=== PATIENT | male | born 1980 | race Caucasian/White ===

== ENCOUNTER 2021-12-11 17:12 | Emergency (ER) | payer MEDICAID, SELFPAY ==
--- NOTE | 2021-12-11 18:36 | CRLHL7_ITS ---
For Patients: As a result of the Cures Act, medical imaging exams and procedure reports are released immediately into your electronic medical record. You may view this report before your referring provider. If you have questions, please contact your health care provider. Indication: Trauma. Technique: Right foot 3 views. Comparison: None. Findings: Bones: Alignment is normal. No fractures or bone lesions. Joint spaces: Unremarkable. Soft tissues: Unremarkable. Impression: No sign of acute injury. Dictated by Gagandeep Beasley MD @ 12/11/2021 7:38:36 PM (Electronically Signed)
[2021-12-11] MEDS: IBUPROFEN 200 MG TABLET 600 MG PO (19:16)
--- NOTE | 2021-12-12 00:32 | ED_ITS ---
HPI - General Adult General Chief complaint: Extremity Pain/Injury, Lower Stated complaint: POSSIBLE BROKEN RT FOOT Time Seen by Provider: 12/11/21 18:43 Source: patient History of Present Illness HPI narrative: Patient is a 40-year-old male who was jumping in a bounce house with his son. He tried to do a flip in the process hit his lateral left ankle on his medial right foot. He had immediate significant swelling on the dorsum of his right foot. He complains of pain there, difficulty bearing weight although he did not really try. Swelling is significantly improved now, he has not tried weight- bearing again. He does have some swelling on the outer left ankle although that is not hurting nearly as much as the foot, which he says is severely painful. Denies other injuries or complaints. Feels like the side of his foot is a little numb and tingly. No weakness or loss of function. Related Data Allergies Allergy/AdvReac Type Severity Reaction Status Date / Time No Known Drug Allergies Allergy Verified 12/11/21 19:47 Review of Systems Status of ROS: Reports: 6 or more systems reviewed and unremarkable except as noted in History and below [facility] Social History Smoking Status: Unknown if ever smoked Exam Narrative: Exam Narrative: Vital signs reviewed In general, an alert male, sitting in wheelchair. Looks comfortable. Extremities: Left ankle, some swelling noted over the left malleolus, he has tenderness directly over the swelling, but does not have any tenderness over the posterior malleolus, no bruising, remainder the ankle is entirely nontender. Foot is nontender. On the right foot, he has bruising noted over the dorsum of the foot, tenderness here. Remainder of the foot is nontender. Pulses intact. Distal CMS normal. Ankle is nontender. Remainder of the right lower extremity is normal. Skin: Warm dry well perfused. Course Course Hospital Course: X-rays of the right foot by my review are negative for fracture. Final radiology report is likewise negative. We discussed doing x-rays of the left ankle, but given that the foot is much more painful than the ankle by his report, and the foot is not fractured, my suspicion that the ankle is fractured is rather low. He defers on x-rays of the ankle right now. Asked the nurse to try med hard sole shoe, plus or minus crutches depending on how he felt. He had requested something for pain, he mention Vicodin, he is here with his 2 sons, given the absence of any fracture on x-ray, discussed that ibuprofen is more appropriate, particularly given that he is driving. Recommend ibuprofen or Tylenol, ice, discussed that x-rays are not perfect, he is not improving over the next week should be seen again for re-evaluation. Discharge Plan Discharge Clinical Impression: Contusion of foot, Ankle contusion Patient Disposition: Home, Self-Care Condition: Improved Instructions: Foot Contusion (ED) Additional Instructions: Continue with ice as needed over the next couple of days. Ibuprofen and/or Tylenol as needed. X-rays do not show any evidence of fracture. Use postop shoe as needed for comfort, crutches if needed, weightbear as tolerated. Symptoms should improve over the next few days. If you are still not able to bear weight in a week, you should be seen for re-evaluation as x-rays do not always show injuries right away. Follow Up/Referrals: Rafat Wellington MD [Primary Care Provider] - Stand Alone Forms: [employer] Info Instructions
== END 2021-12-11 20:09 | disposition home or self-care (01) ==
PROVIDERS: Emergency Provider Emergency Medicine; PCP Family Medicine
DX: S90.31XA Contusion of right foot, initial encounter (principal); Y93.39 Activity, other involving climbing, rappelling and jumping off
CPT/HCPCS: 73630; 99283; A9270

== ENCOUNTER 2022-11-30 22:53 | Emergency (ER) | payer MEDICAID, SELFPAY ==
[2022-11-30 23:20] VITALS: BP 135/78; PULSE 87; RESP 18; TEMP 36.7; O2SAT 99; BMI 25.8
--- NOTE | 2022-12-01 00:14 | ED_ITS ---
HPI - General Adult General Chief complaint: Dental/Oral/Mouth Injury/Pain Stated complaint: abscess tooth left side Time Seen by Provider: 12/01/22 00:03 Source: patient Mode of arrival: ambulatory Limitations: no limitations History of Present Illness HPI narrative: The patient presents the emergency department with a 3 day history of dental tenderness and a 1 day history of some mild facial swelling to the left cheek area. Known history of multiple dental caries. He attempted to call the dentist yesterday to get an appointment and could not locate an appointment with calling a few offices. No trauma, no fevers. Pain radiates into the ear. Has not taken any medication for his pain as he is out of Tylenol. No breathing difficulty, no headache, no neurological change or vision loss. No difficulty s wallowing. Past medical history benign, notes depression and ADHD, well managed on Adderall and fluoxetine. ROS is notable for the HEENT symptoms as above, otherwise denies generalized, respiratory, skin, other HEENT concerns Related Data Home Medications Medication Instructions Recorded Confirmed bupropion HCl 150 mg 24 hr tablet, 150 mg PO QAM 11/30/22 extended release dextroamphetamine-amphetamine 20 1 tab PO BID 11/30/22 11/30/22 mg tablet fluoxetine 20 mg capsule 20 mg PO DAILY 11/30/22 11/30/22 Allergies Allergy/AdvReac Type Severity Reaction Status Date / Time sun Allergy Mild Rash Uncoded 11/30/22 23:26 [facility] Social History Smoking Status: Heavy tobacco smoker What tobacco products do you use: cigarettes Smoking packs per day: 0.5 Smoking cigarettes per day: 10.0 Years smoked: 10 Smoking pack-years: 5.00 Do you use any of these nicotine containing products: None Second hand tobacco smoke exposure: No How often do you have a drink containing alcohol: 2-3 times a week AUDIT-C Alcohol total score: 3 Non-prescribed substance use: marijuana (any form) service: No Exam Const: Vital Signs, click to edit/add: Vital Signs - 24 hr 11/30/22 23:20 Temperature 98.0 F Pulse Rate [Pulse Oximeter] 87 Respiratory Rate 18 Blood Pressure [Le ft Upper Arm] 135/78 Pulse Oximetry 99 Oxygen Delivery Me thod Room Air Documenting provider has reviewed patient's vital signs: yes Common normals: no apparent distress General appearance: comfortable HENMT: Common normals: normocephalic, head/scalp atraumatic and TM's normal bilaterally Head and scalp: normocephalic and atraumatic Face and sinus: normal facial exam Tympanic membrane: TM's normal bilaterally Mouth: oral and palatal mucosa normal Other: Multiple dental caries. No obvious lower gum fluctuance or drainage. There is some mild swelling of the gum area on the lower 1st molar area. 2nd molar is surgically absent. No overlying facial swelling or redness. Is Eye: Other: Normal visual gaze and tracking Neck & C-Spine: Common normals: full ROM and no lymphadenopathy Resp: Common normals: normal respiratory effort, no use of accessory muscles and clear to auscultation bilaterally Effort & inspection: able to speak in complete sentences Auscultation: clear to auscultation bilaterally Cardio: Common normals: regular rate, regular rhythm, S1 normal heart sound, S2 normal heart sound and no murmurs Rate: regular rate Rhythm: regular rhythm Heart sounds: S1 normal and S2 normal Psych: Activity/motor behavior: appropriate eye contact Mood and affect: euthymic mood Skin: Common normals: no rashes or lesions noted General skin exam: no rashes or lesions noted Course Course Hospital Course: No signs of facial cellulitis, tachycardia, hypotension, sepsis, neurological involvement or other significant complication. Findings reviewed with patient. Discussed how he will need to find definitive care through a dentist. Temporary prescription for amoxicillin given. Use discussed, alarm symptoms reviewed. Tylenol given x1 p.o. per his request I recommended [id number] Tylenol and ibuprofen as needed for pain control Vital Signs Vital signs: Initial Vital Signs Temperature 98.0 F 11/30/22 23:20 Temperature Source Temporal Artery Scan 11/30/22 23:20 Pulse Rate 87 11/30/22 23:20 Respiratory Rate 18 11/30/22 23:20 Blood Pressure 135/78 11/30/22 23:20 Blood Pressure Mean 97 11/30/22 23:20 Blood Pressure Position Sitting 11/30/22 23:20 Pulse Oximetry 99 11/30/22 23:20 Oxygen Delivery Method Room Air 11/30/22 23:20 Vital Signs Temperature 98.0 F 11/30/22 23:20 Pulse Rate 87 11/30/22 23:20 Respiratory Rate 18 11/30/22 23:20 Blood Pressure 135/78 11/30/22 23:20 Pulse Oximetry 99 11/30/22 23:20 Oxygen Delivery Method Room Air 11/30/22 23:20 Temperature 98.0 F 11/30/22 23:20 Pulse Rate 87 11/30/22 23:20 Respiratory Rate 18 11/30/22 23:20 Blood Pressure 135/78 11/30/22 23:20 Pulse Oximetry 99 11/30/22 23:20 Oxygen Delivery Method Room Air 11/30/22 23:20 Discharge Plan Discharge Clinical Impression: Dental caries Patient Disposition: Home, Self-Care Condition: Stable Instructions: Dental Abscess (ED) Additional Instructions: You seem to have a mild infection but no signs of severe infection. As we discussed, we do not manage dental infections in the emergency department. We can provide a temporary intervention which will slow the progression of the infection with oral antibiotics but this will definitively need treatment from a dentist. Please keep calling to try to get an appointment as soon as possible. I have prescribed amoxicillin 2 pills 2 times daily for the next week. For pain, I recommend [id number] Tylenol 1000 mg every 6 hours and or ibuprofen 600 mg every 6 hours. I am not concerned about the ear pain nor the very mild facial swelling. I would come back to the emergency department if you have neurological changes, severe headaches, persistent fevers over 100.4 or unable to hold down any liquids for over 24 hours. Youare fully cleared for work and typical duty. Activity Level: No Restrictions Discharge Diet: Regular Prescriptions: No Action dextroamphetamine-amphetamine 20 mg tablet 1 tab PO BID fluoxetine 20 mg capsule 20 mg PO DAILY bupropion HCl 150 mg tablet extended release 24 hr 150 mg PO QAM Follow Up/Referrals: Rafat Wellington MD [Primary Care Provider] - Stand Alone Forms: [employer] Info Instructions
[2022-12-01] MEDS: ACETAMINOPHEN 500 MG TABLET 1000 MG PO (00:19)
== END 2022-12-01 00:24 | disposition home or self-care (01) ==
LOC: ED 12-01 00:19
PROVIDERS: Emergency Provider Family Medicine; PCP Family Medicine
DX: K02.9 Dental caries, unspecified (principal)
CPT/HCPCS: 99283; A9270

== ENCOUNTER 2022-12-12 16:14 | Emergency (ER) | payer MEDICAID, SELFPAY ==
[2022-12-12 16:23] VITALS: BP 102/66; PULSE 80; RESP 18; TEMP 36.4; O2SAT 97; BMI 25.8
--- NOTE | 2022-12-12 16:40 | ED.GENADULT ---
HPI - General Adult General Date Seen: 12/12/22 Chief complaint: Unspecified Complaint, Adult Stated complaint: Hemorrhoid burst Time Seen by Provider: 12/12/22 16:26 Source: patient Mode of arrival: ambulatory Limitations: no limitations History of Present Illness HPI narrative: Patient is a 41-year-old male with a history of hemorrhoids, 3 days ago he says he developed a hemorrhoid which felt firm and was somewhat painful. 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 Pain is somewhat improved since then although it still sore. He does not take any blood thinners. Denies problems with constipation. Related Data Home Medications Medication Instructions Recorded Confirmed bupropion HCl 150 mg 24 hr tablet, 150 mg PO QAM 11/30/22 extended release dextroamphetamine-amphetamine 20 1 tab PO BID 11/30/22 11/30/22 mg tablet fluoxetine 20 mg capsule 20 mg PO DAILY 11/30/22 11/30/22 Allergies Allergy/AdvReac Type Severity Reaction Status Date / Time sun Allergy Mild Rash Uncoded 11/30/22 23:26 Review of Systems Status of ROS: Reports: 6 or more systems reviewed and unremarkable except as noted in History and below PFSH PFS Social History Smoking Status: Heavy tobacco smoker What tobacco products do you use: cigarettes Smoking packs per day: 0.5 Smoking cigarettes per day: 10.0 Years smoked: 10 Smoking pack-years: 5.00 Do you use any of these nicotine containing products: None Second hand tobacco smoke exposure: No How often do you have a drink containing alcohol: 2-3 times a week AUDIT-C Alcohol total score: 3 Non-prescribed substance use: marijuana (any form) service: No Exam Narrative: Exam Narrative: Vital signs reviewed In general, an alert, well-appearing male. Rectal: He has a roughly 1.5 cm thrombosed hemorrhoid. There is a small punctate area which bleeds when dabbed with paper. There is no other significant bleeding. No other hemorrhoids at this time. Const: Vital Signs, click to edit/add: Vital Signs - 24 hr 12/12/22 16:23 Temperature 97.6 F Pulse Rate [Right Pulse Oximeter] 80 Respiratory Rate 18 Blood Pressure [Ri ght Upper Arm] 102/66 Pulse Oximetry 97 Oxygen Delivery Me thod Room Air Documenting provider has reviewed patient's vital signs: yes Course Course Hospital Course: Reviewed general care for hemorrhoids. I am giving him some surgifoam for the area to get the bleeding settled down. Given that this is been present for 3 days I think I and D is unlikely to be beneficial for him. Return for significant bleeding, p.r.n. follow up with primary care for ongoing problems. Vital Signs Vital signs: Initial Vital Signs Temperature 97.6 F 12/12/22 16:23 Temperature Source Temporal Artery Scan 12/12/22 16:23 Pulse Rate 80 12/12/22 16:23 Respiratory Rate 18 12/12/22 16:23 Blood Pressure 102/66 12/12/22 16:23 Blood Pressure Mean 78 12/12/22 16:23 Blood Pressure Position Sitting 12/12/22 16:23 Pulse Oximetry 97 12/12/22 16:23 Oxygen Delivery Method Room Air 12/12/22 16:23 Vital Signs Temperature 97.6 F 12/12/22 16:23 Pulse Rate 80 12/12/22 16:23 Respiratory Rate 18 12/12/22 16:23 Blood Pressure 102/66 12/12/22 16:23 Pulse Oximetry 97 12/12/22 16:23 Oxygen Delivery Method Room Air 12/12/22 16:23 Temperature 97.6 F 12/12/22 16:23 Pulse Rate 80 12/12/22 16:23 Respiratory Rate 18 12/12/22 16:23 Blood Pressure 102/66 12/12/22 16:23 Pulse Oximetry 97 12/12/22 16:23 Oxygen Delivery Method Room Air 12/12/22 16:23 Discharge Plan Discharge Clinical Impression: External hemorrhoid, thrombosed Patient Disposition: Home, Self-Care Condition: Stable Instructions: Hemorrhoids (ED) Additional Instructions: Place a small piece of Gelfoam over the area that is bleeding. Be gentle with wiping so as to not disrupt this area. It will probably take a couple of weeks for the hemorrhoid to completely resolve. You can take ibuprofen or Tylenol if needed for pain. Return for significant bleeding. Prescriptions: No Action dextroamphetamine-amphetamine 20 mg tablet 1 tab PO BID fluoxetine 20 mg capsule 20 mg PO DAILY bupropion HCl 150 mg tablet extended release 24 hr 150 mg PO QAM Follow Up/Referrals: Rafat Wellington MD [Primary Care Provider] - Stand Alone Forms: [employer] Info Instructions
== END 2022-12-12 16:50 | disposition home or self-care (01) ==
LOC: ED 16:41
PROVIDERS: Emergency Provider Emergency Medicine; PCP Family Medicine
DX: K64.5 Perianal venous thrombosis (principal)
CPT/HCPCS: 99282; 99283

== ENCOUNTER 2023-08-22 13:54 | Emergency (ER) | payer MEDICAID, SELFPAY ==
[2023-08-22 13:59] VITALS: BP 125/71; PULSE 74; RESP 20; TEMP 36.7; O2SAT 97; BMI 25.8
--- NOTE | 2023-08-22 14:26 | XR_ITS ---
Patient: BLAINE MICHAEL Facility:?[facility] Patient ID:?[id number] Site Patient ID:?[id number]. Site :?[id number] Study:?XRay-Extremity Left 4TH DIGIT FINGER-08/22/2023 2:43:53 PM Ordering Physician:SHANTEL Final Report: INDICATION: Crush injury COMPARISON: None. TECHNIQUE: Three views left 4th finger. FINDINGS: Small bony irregularity along the dorsal base of the distal phalanx may be a small nondisplaced fracture. No other fracture. Normal joint alignment. Mild osteoarthritis. No focal bone lesions. Normal bone mineralization. Soft tissue swelling and subcutaneous emphysema. No embedded foreign body. Partially seen 5th metatarsal fracture fixation hardware. IMPRESSION: Possible nondisplaced left 4th finger distal phalanx fracture. Subcutaneous emphysema and swelling without a foreign body. Dictated by Marita Kim MD @ 08/22/2023 2:46:41 PM Signed by:?Marita Kim MD @08/22/2023 2:46:41 PM (Electronic Signature)
--- NOTE | 2023-08-22 15:11 | ED_ITS ---
HPI - General Adult General Chief complaint: Extremity Pain/Injury, Upper Stated complaint: lac on ring finger r hand Time Seen by Provider: 08/22/23 14:05 Source: patient Mode of arrival: ambulatory Limitations: no limitations History of Present Illness HPI narrative: 42-year-old male presenting today with a laceration to the ring finger of the left hand. This occurred when a lift from a truck bed fell on his hand. He denies any other injury. Tetanus shot is up-to-date. Related Data Home Medications Medication Instructions Recorded Confirmed bupropion HCl 150 mg 24 hr tablet, 150 mg PO QAM 11/30/22 extended release dextroamphetamine-amphetamine 20 1 tab PO BID 11/30/22 11/30/22 mg tablet fluoxetine 20 mg capsule 20 mg PO DAILY 11/30/22 11/30/22 Previous Rx's Medication Instructions Recorded cephalexin 500 mg capsule 500 mg PO TID 7 days #21 caps 08/22/23 Allergies Allergy/AdvReac Type Severity Reaction Status Date / Time sun Allergy Mild Rash Uncoded 11/30/22 23:26 Review of Systems Status of ROS: Reports: 6 or more systems reviewed and unremarkable except as noted in History and below [facility] Social History Smoking Status: Current some day smoker What tobacco products do you use: cigarettes Smoking packs per day: 0.5 Smoking cigarettes per day: 10.0 Years smoked: 10 Smoking pack-years: 5.00 Do you use any of these nicotine containing products: None Second hand tobacco smoke exposure: No How often do you have a drink containing alcohol: 2-4 times a month How many standard drinks containing alcohol do you have on a typical day: 3 or 4 How often do you have six or more drinks on one occasion: Less than monthly AUDIT-C Alcohol total score: 4 Non-prescribed substance use: marijuana (any form) service: No Exam Narrative: Exam Narrative: Well-nourished well-developed patient in no acute distress. Alert and oriented. Answers questions appropriately. Mood and affect are appropriate. Thoughts are goal oriented and rational. No tangential or magical thinking noted. Patient speaks in full sentences without needing to catch his breath. Small strongly of tobacco. HEENT: Normocephalic atraumatic. Extraocular muscles are intact. Conjunctivae are moist without any icterus noted. Extremities: Left hand has a laceration on the palmar surface of the ring finger. The laceration is a C-shaped over the pad of the finger with the pad of the finger resulting in a flap. The laceration that extends down the shaft of the finger 2nd just distal to the PIP. Patient does have full range of motion with flexion and extension of that finger. There is no bone visualized. Const: Vital Signs, click to edit/add: Vital Signs - 24 hr 08/22/23 13:59 Temperature 98.1 F Pulse Rate [Pulse Oximeter] 74 Respiratory Rate 20 Blood Pressure [Le ft Upper Arm] 125/71 Pulse Oximetry 97 Oxygen Delivery Me thod Room Air Course Course ED Course: X-ray of the finger was done, showing a possible nondisplaced fracture of the dorsal surface of the distal phalanx. Digital block was done with lidocaine. Wound was cleaned and explored. Laceration was sutured with 4-0 Ethilon. The finger was then clean, dressed and splinted. Vital Signs Vital signs: Initial Vital Signs Temperature 98.1 F 08/22/23 13:59 Temperature Source Temporal Artery Scan 08/22/23 13:59 Pulse Rate 74 08/22/23 13:59 Pulse Rhythm Regular 08/22/23 13:59 Respiratory Rate 20 08/22/23 13:59 Blood Pressure 125/71 08/22/23 13:59 Blood Pressure Mean 89 08/22/23 13:59 Blood Pressure Position Sitting 08/22/23 13:59 Pulse Oximetry 97 08/22/23 13:59 Oxygen Delivery Method Room Air 08/22/23 13:59 Vital Signs Temperature 98.1 F 08/22/23 13:59 Pulse Rate 74 08/22/23 13:59 Respiratory Rate 20 08/22/23 13:59 Blood Pressure 125/71 08/22/23 13:59 Pulse Oximetry 97 08/22/23 13:59 Oxygen Delivery Method Room Air 08/22/23 13:59 Temperature 98.1 F 08/22/23 13:59 Pulse Rate 74 08/22/23 13:59 Respiratory Rate 20 08/22/23 13:59 Blood Pressure 125/71 08/22/23 13:59 Pulse Oximetry 97 08/22/23 13:59 Oxygen Delivery Method Room Air 08/22/23 13:59 Medical Decision Making MDM Narrative Medical decision making narrative: 42-year-old male status post a crush injury to the left ring finger, possible fracture she the distal phalanx, a large deep laceration to a large surface area of the finger. Sutured per above. We discussed wound hygiene, signs symptoms of infection reasons for follow-up. We discussed suture removal. Will put the patient on antibiotic given the depth of the laceration. Imaging Data X-ray finger: Attestation: I have reviewed the pertinent imaging results. Radiologist's impression: INDICATION: Crush injury COMPARISON: None. TECHNIQUE: Three views left 4th finger. FINDINGS: Small bony irregularity along the dorsal base of the distal phalanx may be a small nondisplaced fracture. No other fracture. Normal joint alignment. Mild osteoarthritis. No focal bone lesions. Normal bone mineralization. Soft tissue swelling and subcutaneous emphysema. No embedded foreign body. Partially seen 5th metatarsal fracture fixation hardware. IMPRESSION: Possible nondisplaced left 4th finger distal phalanx fracture. Subcutaneous emphysema and swelling without a foreign body. Discharge Plan Discharge Clinical Impression: Fracture of distal phalanx of finger, Crush injury to finger, Laceration Patient Disposition: Home, Self-Care Condition: Improved Additional Instructions: Keep finger clean and dry. Okay to shower like you normally would but do not soak the finger for prolonged periods of time. You will be placed on an antibiotic because of the size of your laceration today, please take all antibiotics as prescribed. Your sutures should be removed in approximately 7-10 days. Make an appoint with your primary care provider today for that appointment. The dressing should be changed once a day unless it becomes dirty, then change it more often. If you are going to work make sure that the finger is covered at all times. The radiologist did see a tiny crack of the bone at the tip of the finger. This should heal without complication. You should wear your splint at all times to protect the bone and to help with pain. Antibiotics sent to pharmacy, pain medication sent to [facility]. You cannot operate any heavy machinery or drive if you take the prescribe pain medications. Prescriptions: New cephalexin 500 mg capsule 500 mg PO TID 7 Days Qty: 21 0RF No Action dextroamphetamine-amphetamine 20 mg tablet 1 tab PO BID fluoxetine 20 mg capsule 20 mg PO DAILY bupropion HCl 150 mg tablet extended release 24 hr 150 mg PO QAM Follow Up/Referrals: Rafat Wellington MD [Primary Care Provider] - Stand Alone Forms: [employer] Info Instructions
[2023-08-22] MEDS: ACETAMINOPHEN 500 MG TABLET 1000 MG PO (15:30)
[2023-08-22 15:37] VITALS: BP 125/71; PULSE 74; RESP 20; TEMP 36.7
== END 2023-08-22 15:38 | disposition home or self-care (01) ==
PROVIDERS: Emergency Provider Family Medicine; PCP Family Medicine
DX: S62.635A Displaced fracture of distal phalanx of left ring finger, initial encounter for closed fracture (principal); S61.215A Laceration without foreign body of left ring finger without damage to nail, initial encounter; W20.8XXA Other cause of strike by thrown, projected or falling object, initial encounter
CPT/HCPCS: 12001; 73140; 99283; 99284; A9270

== ENCOUNTER 2023-08-30 13:01 | Emergency (ER) | payer OTHER, MEDICAID, SELFPAY ==
[2023-08-30 13:04] VITALS: BP 121/67; PULSE 62; RESP 16; TEMP 37.1; O2SAT 99; BMI 27.3
--- NOTE | 2023-08-30 13:10 | ED.GENADULT ---
HPI - General Adult General Date Seen: 08/30/23 Stated complaint: L finger infection Time Seen by Provider: 08/30/23 13:10 History of Present Illness HPI narrative: This is a pleasant generally healthy 42-year-old male who returns to the ER today for re-evaluation of his 4th digit on his left hand. He originally suffered a crush injury and a loading dock at work on August 19. Laceration was repaired in the ER on the day of injury. X-ray showed a possible distal phalanx fracture. He was discharged home in a splint. He followed up at the [facility] yesterday, 7 days after the wound repair and had the sutures removed. He says they placed a dressing with lot of antibiotic ointment and sent home. Today weight took the dressing off the wound had dehisced. He also notes that he now has whiteness of the skin on the flap that had been repaired and a little bit of whiteness along the proximal edge of the wound on the proximal portion of the finger. Noted some yellow purulent drainage from the wound today. No redness or swelling of the finger. He is having some pain. He has normal flexion and extension of the D IP, PIP, MCP. No history of immunosuppression or diabetes. Related Data Home Medications Medication Instructions Recorded Confirmed bupropion HCl 150 mg 24 hr tablet, 150 mg PO QAM 11/30/22 extended release dextroamphetamine-amphetamine 20 1 tab PO BID 11/30/22 11/30/22 mg tablet fluoxetine 20 mg capsule 20 mg PO DAILY 11/30/22 11/30/22 Previous Rx's Medication Instructions Recorded cephalexin 500 mg capsule 500 mg PO TID 7 days #21 caps 08/22/23 amoxicillin 875 mg tablet 875 mg PO BID #14 tabs 08/30/23 amoxicillin 875 mg tablet 875 mg PO BID 7 days #14 tabs 08/30/23 hydrocodone 5 mg-acetaminophen 325 1 tab PO Q4-6H PRN pain #10 tabs 08/30/23 mg tablet hydrocodone 5 mg-acetaminophen 325 1 tab PO Q4-6H PRN pain #14 tabs 08/30/23 mg tablet sulfamethoxazole 800 1 tab PO BID #14 tabs 08/30/23 mg-trimethoprim 160 mg tablet (Bactrim DS) sulfamethoxazole 800 1 tab PO BID 7 days #14 tabs 08/30/23 mg-trimethoprim 160 mg tablet (Bactrim DS) Allergies Allergy/AdvReac Type Severity Reaction Status Date / Time sun Allergy Mild Rash Uncoded 11/30/22 23:26 [facility] Social History Smoking Status: Current some day smoker What tobacco products do you use: cigarettes Smoking packs per day: 0.5 Smoking cigarettes per day: 10.0 Years smoked: 10 Smoking pack-years: 5.00 Do you use any of these nicotine containing products: None Second hand tobacco smoke exposure: No How often do you have a drink containing alcohol: 2-4 times a month How many standard drinks containing alcohol do you have on a typical day: 3 or 4 How often do you have six or more drinks on one occasion: Less than monthly AUDIT-C Alcohol total score: 4 Non-prescribed substance use: marijuana (any form) service: No Exam Narrative: Exam Narrative: Constitutional: Appears well-developed and well-nourished. Alert. Conversant. Non toxic. HENT: Head: Atraumatic. Nose: Nose normal. Mouth/Throat: Oral mucosa is clear and moist. no trismus. Pharynx normal. Tonsils symmetric. No tonsillar enlargement, erythema, or exudate. Eyes: Conjunctivae normal. EOM normal. Pupils equal, round, and reactive to light. No scleral icterus. Neck: Normal range of motion. Neck supple. No tracheal deviation present. Cardiovascular: Normal rate, regular rhythm. No gallop. No friction rub. No murmur heard. Symmetric radial artery pulses Pulmonary/Chest: Effort normal. No stridor. No respiratory distress. No wheezes. No rales. No rhonchi . No tenderness. Abdominal: Soft. Bowel sounds normal. No distension. No mass. No tenderness. No rebound. No guarding. Musculoskeletal: RUE: Normal range of motion. No tenderness. No deformity LUE: Normal except for his 4th digit. Patient has a wound on the finger pad of his 4th digit. It appears to be a curvilinear C shaped wound affecting the pad that would have created a flap of the finger pad distally. The wound is dehisced and there is exposed underlying soft tissue with a diameter between the skin edges between 1 mm and 2 mm. The skin edge of the distal flap is macerated and white. There is also some maceration and whiteness of the skin the proximal wound. There is really not much redness of the skin around the wound. No active purulent drainage but reports having purulent drainage on the dressing he talked off this morning. Normal flexion and extension of the MCP, PIP, DI P. RLE: Normal range of motion. No edema. No tenderness. No deformity LLE: Normal range of motion. No edema. No tenderness. No deformity Lymph: No cervical adenopathy. Neurological: Alert and oriented to person, place, and time. Normal strength. CN II-VII intact. No sensory deficit. GCS eye subscore is 4. GCS verbal subscore is 5. GCS motor subscore is 6. Normal coordination Skin: Skin is warm and dry. No rash noted. No pallor. Normal capillary refill. Psychiatric: Normal mood. Normal affect. Const: Vital Signs, click to edit/add: Vital Signs - 24 hr 08/30/23 13:04 Temperature 98.8 F Pulse Rate [Pulse Oximeter] 62 Respiratory Rate 16 Blood Pressure [Ri ght Upper Arm] 121/67 Pulse Oximetry 99 Oxygen Delivery Me thod Room Air Course Vital Signs Vital signs: Initial Vital Signs Temperature 98.8 F 08/30/23 13:04 Temperature Source Temporal Artery Scan 08/30/23 13:04 Pulse Rate 62 08/30/23 13:04 Respiratory Rate 16 08/30/23 13:04 Blood Pressure 121/67 08/30/23 13:04 Blood Pressure Mean 85 08/30/23 13:04 Blood Pressure Position Sitting 08/30/23 13:04 Pulse Oximetry 99 08/30/23 13:04 Oxygen Delivery Method Room Air 08/30/23 13:04 Vital Signs Temperature 98.8 F 08/30/23 13:04 Pulse Rate 62 08/30/23 13:04 Respiratory Rate 16 08/30/23 13:04 Blood Pressure 121/67 08/30/23 13:04 Pulse Oximetry 99 08/30/23 13:04 Oxygen Delivery Method Room Air 08/30/23 13:04 Temperature 98.8 F 08/30/23 13:04 Pulse Rate 62 08/30/23 13:04 Respiratory Rate 16 08/30/23 13:04 Blood Pressure 121/67 08/30/23 13:04 Pulse Oximetry 99 08/30/23 13:04 Oxygen Delivery Method Room Air 08/30/23 13:04 Medical Decision Making MDM Narrative Medical decision making narrative: Pleasant generally healthy 42-year-old male returning to the ER today with concern for a wound infection. He had a crushing injury at work about a week feeling had the wound repaired. It had been healing well and sutures were looking good. He had the sutures removed yesterday and unfortunately the wound dehisced overnight. In retrospect, he suspects that the sutures were probably taken out too soon, and I agree. With purulent drainage from the wound today concern is for possible evolving infection. He has been on prophylactic Keflex. This has been causing GI upset but not diarrhea. No suspicions for C diff at this time. He also has a history of MRSA. Will broaden his antibiotic coverage to include Bactrim and switch from Keflex to amoxicillin to cover possible MRSA is other skin jessica. He will need close outpatient follow-up with the ortho clinic to recheck the wound. He will call Friday to arrange his follow-up appointment. Discussed wound care, dressing changes, precautions for return to the ER. Questions answered. Discharge Plan Discharge Clinical Impression: Finger infection, Dehiscence of wound Patient Disposition: Home, Self-Care Condition: Stable Instructions: MRSA (Methicillin-Resistant Staphylococcus Aureus) (ED), Wound Infection (DC) Additional Instructions: Please call the [facility] Orthopedic Department on Friday morning at 8:00 a.m. to arrange an ER follow-up appointment to recheck the wound on your finger. Call [phone]. Unfortunately, the skin of your wound has broken open after the stitches were removed, and there is signs of an infection around the wound. Please start the new antibiotics-amoxicillin and Bactrim- today. To manage the pain, you can use [id number] medications such as Tylenol or ibuprofen. Use prescription pain killer-hydrocodone, if needed. Use caution with hydrocodone because it can cause drowsiness, dizziness, and can be addictive. Monitor the wound carefully. Take the dressing off once per day. If the wound is soiled, clean the wound gently with warm water. After clean the wound reapply a small amount of antibiotic ointment and another dressing. If you notice increasing swelling, redness, worsening pus draining from the wound, further discoloration of your finger (turning white or blue), or if you develop fever, chills, or red streaks moving up your hand, return to the ER immediately. Prescriptions: New amoxicillin 875 mg tablet 875 mg PO BID Qty: 14 0RF sulfamethoxazole-trimethoprim [Bactrim DS] 800-160 mg tablet 1 tab PO BID Qty: 14 0RF hydrocodone-acetaminophen 5-325 mg tablet 1 tab PO Q4-6H PRN (Reason: pain) Qty: 10 0RF sulfamethoxazole-trimethoprim [Bactrim DS] 800-160 mg tablet 1 tab PO BID 7 Days Qty: 14 0RF amoxicillin 875 mg tablet 875 mg PO BID 7 Days Qty: 14 0RF hydrocodone-acetaminophen 5-325 mg tablet 1 tab PO Q4-6H PRN (Reason: pain) Qty: 14 0RF No Action dextroamphetamine-amphetamine 20 mg tablet 1 tab PO BID fluoxetine 20 mg capsule 20 mg PO DAILY bupropion HCl 150 mg tablet extended release 24 hr 150 mg PO QAM cephalexin 500 mg capsule 500 mg PO TID 7 Days Qty: 21 0RF Follow Up/Referrals: Rafat Wellington MD [Primary Care Provider] - Stand Alone Forms: [facility] Info Instructions
== END 2023-08-30 14:03 | disposition home or self-care (01) ==
LOC: ED 13:54
PROVIDERS: Emergency Provider Emergency Medicine; PCP Family Medicine
DX: T81.31XA Disruption of external operation (surgical) wound, not elsewhere classified, initial encounter (principal); L08.9 Local infection of the skin and subcutaneous tissue, unspecified
CPT/HCPCS: 99283

== ENCOUNTER 2023-12-24 21:47 | Emergency (ER) | payer MEDICAID, SELFPAY ==
[2023-12-24 21:56] VITALS: BP 142/89; PULSE 85; RESP 18; TEMP 36.8; O2SAT 98; BMI 27.3
--- NOTE | 2023-12-24 22:07 | CRLHL7_ITS ---
For Patients: As a result of the Cures Act, medical imaging exams and procedure reports are released immediately into your electronic medical record. You may view this report before your referring provider. If you have questions, please contact your health care provider. Indication: Pain and injury after fall Technique: Two views of the right forearm Comparison: None Findings/Impression: No acute radiographic abnormality appreciated. Dictated by Tushar Peoples MD @ 12/24/2023 10:49:21 PM (Electronically Signed)
--- NOTE | 2023-12-24 22:07 | CRLHL7_ITS ---
For Patients: As a result of the Cures Act, medical imaging exams and procedure reports are released immediately into your electronic medical record. You may view this report before your referring provider. If you have questions, please contact your health care provider. Indication: Pain and injury after fall Technique: Three views of the right elbow Comparison: None Findings/Impression: No acute radiographic abnormality appreciated. Dictated by Tushar Peoples MD @ 12/24/2023 10:48:43 PM (Electronically Signed)
--- NOTE | 2023-12-24 22:07 | CRLHL7_ITS ---
For Patients: As a result of the Cures Act, medical imaging exams and procedure reports are released immediately into your electronic medical record. You may view this report before your referring provider. If you have questions, please contact your health care provider. Indication: Pain and injury after fall Technique: Three views of the right wrist Comparison: Right hand radiographs performed 08/04/2016 Findings/Impression: Prior 5th metacarpal repair hardware with no acute radiographic abnormality appreciated. Dictated by Tushar Peoples MD @ 12/24/2023 10:50:12 PM (Electronically Signed)
--- NOTE | 2023-12-24 22:53 | ED.GENADULT ---
HPI - General Adult General Chief complaint: Extremity Pain/Injury, Upper Stated complaint: R arm injury Time Seen by Provider: 12/24/23 22:02 Source: patient Mode of arrival: ambulatory Limitations: no limitations History of Present Illness HPI narrative: 43-year-old male presenting today with arm pain. Patient states that he was skateboarding and fell on his right arm, arm was bent at the elbow and he landed on the anterior surface of the forearm. He is complaining of pain of the entire arm from wrist all the way to the elbow. Denies any other injury. Denies hitting his head or losing consciousness. Related Data Home Medications ?Medication ?Instructions ?Recorded ?Confirmed bupropion HCl 150 mg 24 hr tablet, 150 mg PO QAM 11/30/22 10/22/23 extended release dextroamphetamine-amphetamine 20 1 tab PO BID 11/30/22 10/22/23 mg tablet fluoxetine 20 mg capsule 20 mg PO DAILY 11/30/22 10/22/23 aripiprazole 2 mg tablet 2 mg PO DAILY 10/22/23 10/22/23 trazodone 50 mg tablet mg PO 10/22/23 10/22/23 Allergies Allergy/AdvReac Type Severity Reaction Status Date / Time grass pollen Allergy Verified 10/28/23 15:29 sun Allergy Mild Rash Uncoded 10/28/23 15:29 Review of Systems Status of ROS: Reports: 6 or more systems reviewed and unremarkable except as noted in History and below [facility] Medical History Sore mouth ?K13.79 - Other lesions of oral mucosa (ICD-10) Prurigo nodularis ?L28.1 - Prurigo nodularis (ICD-10) Left-sided chest pain ?R07.9 - Chest pain, unspecified (ICD-10) Left shoulder pain ?M25.512 - Pain in left shoulder (ICD-10) Left cervical radiculopathy ?M54.12 - Radiculopathy, cervical region (ICD-10) Intussusception of small intestine ?K56.1 - Intussusception (ICD-10) History of methicillin resistant Staphylococcus aureus infection (02/03/13) ?Z86.14 - Personal history of Methicillin resistant Staphylococcus aureus infection (ICD-10) Cellulitis of face (02/05/13) ?L03.211 - Cellulitis of face (ICD-10) Bronchitis ?J40 - Bronchitis, not specified as acute or chronic (ICD-10) Boxer's fracture ?S62.339A - Displaced fracture of neck of unspecified metacarpal bone, initial encounter for closed fracture (ICD-10) Attention deficit disorder of adult with hyperactivity ?F90.9 - Attention-deficit hyperactivity disorder, unspecified type (ICD-10) Surgical History History of hand surgery ?Z98.890 - Other specified postprocedural states (ICD-10) Family History Mother Colon cancer, Onset Age: 60 Heart disease, Onset Age: 57 Maternal Grandmother Stroke, Onset Age: 60 Heart disease Sister Epilepsy Other Lung cancer Social History Smoking Status: Current some day smoker What tobacco products do you use: cigarettes Smoking packs per day: 0.5 Smoking cigarettes per day: 10.0 Years smoked: 10 Smoking pack-years: 5.00 Do you use any of these nicotine containing products: None Second hand tobacco smoke exposure: No How often do you have a drink containing alcohol: 2-4 times a month How many standard drinks containing alcohol do you have on a typical day: 3 or 4 How often do you have six or more drinks on one occasion: Less than monthly AUDIT-C Alcohol total score: 4 Non-prescribed substance use: marijuana (any form) service: No Exam Narrative: Exam Narrative: Well-nourished well-developed patient in no acute distress. Alert and oriented. Answers questions appropriately. Mood and affect are appropriate. Thoughts are goal oriented and rational. No tangential or magical thinking noted. Patient speaks in full sentences without needing to catch his breath. HEENT: Normocephalic atraumatic. Extraocular muscles are intact. Conjunctivae are moist without any icterus noted. Moist mucous membranes. Extremities: Patient has very superficial abrasion of the anterior surface of the forearm just distal to the elbow. He has no tenderness to palpation at the olecranon, medial or lateral epicondyles. He has some discomfort with extension flexion at the elbow. When he moves his wrist he feels pain shooting up into the forearm. He has plane with flexion at and extension of the wrist. Normal radial pulse. No pain at the fingers. There is mild swelling noted of the forearm. Const: Vital Signs, click to edit/add: Vital Signs - 24 hr 12/24/23 21:56 Temperature 98.2 F Pulse Rate [Pulse Oximeter] 85 Respiratory Rate 18 Blood Pressure [Le ft Upper Arm] 142/89 H Pulse Oximetry 98 Oxygen Delivery Me thod Room Air Course Course ED Course: X-rays of the wrist, forearm and elbow were unremarkable. Vital Signs Vital signs: Initial Vital Signs Temperature 98.2 F 12/24/23 21:56 Temperature Source Temporal Artery Scan 12/24/23 21:56 Pulse Rate 85 12/24/23 21:56 Respiratory Rate 18 12/24/23 21:56 Blood Pressure 142/89 H 12/24/23 21:56 Blood Pressure Mean 106 H 12/24/23 21:56 Blood Pressure Position Sitting 12/24/23 21:56 Pulse Oximetry 98 12/24/23 21:56 Oxygen Delivery Method Room Air 12/24/23 21:56 Vital Signs Temperature 98.2 F 12/24/23 21:56 Pulse Rate 85 12/24/23 21:56 Respiratory Rate 18 12/24/23 21:56 Blood Pressure 142/89 H 12/24/23 21:56 Pulse Oximetry 98 12/24/23 21:56 Oxygen Delivery Method Room Air 12/24/23 21:56 Temperature 98.2 F 12/24/23 21:56 Pulse Rate 85 12/24/23 21:56 Respiratory Rate 18 12/24/23 21:56 Blood Pressure 142/89 H 12/24/23 21:56 Pulse Oximetry 98 12/24/23 21:56 Oxygen Delivery Method Room Air 12/24/23 21:56 Medical Decision Making MDM Narrative Medical decision making narrative: 43-year-old male contusion of the arm. Discussed symptomatic treatment reasons for follow-up. Discharge Plan Discharge Clinical Impression: Contusion of arm Patient Disposition: Home, Self-Care Condition: Stable Additional Instructions: X-rays were all normal today, no evidence of any broken bones. Okay to take ibuprofen and/Tylenol as needed for discomfort. Okay to ice sore areas for 20 minutes at a time, do not apply ice directly to skin. Prescriptions: No Action aripiprazole 2 mg tablet 2 mg PO DAILY trazodone 50 mg tablet PO dextroamphetamine-amphetamine 20 mg tablet 1 tab PO BID fluoxetine 20 mg capsule 20 mg PO DAILY bupropion HCl 150 mg tablet extended release 24 hr 150 mg PO QAM Follow Up/Referrals: Rafat Wellington MD [Primary Care Provider] - Stand Alone Forms: [employer] Info Instructions
[2023-12-24 23:21] VITALS: BP 135/84; PULSE 78; RESP 18; TEMP 36.8; O2SAT 98
[2023-12-24 23:22] VITALS: BP 135/84; PULSE 78; RESP 18; TEMP 36.8
== END 2023-12-24 23:22 | disposition home or self-care (01) ==
PROVIDERS: Emergency Provider Family Medicine; PCP Family Medicine
DX: S40.021A Contusion of right upper arm, initial encounter (principal); V00.131A Fall from skateboard, initial encounter
CPT/HCPCS: 73080; 73090; 73110; 99283; 99284

== ENCOUNTER 2024-04-21 21:03 | Outpatient (CLI) | payer MEDICAID, SELFPAY | END 2024-04-21 21:04 | disposition home or self-care (01) | LOC: AMB 04-23 03:28 | PROVIDERS: PCP Family Medicine; Visit Provider Emergency Medicine Emergency Medical Services | DX: H53.9 Unspecified visual disturbance (principal) | CPT/HCPCS: A0425; A0427 ==

== ENCOUNTER 2024-04-21 21:25 | Emergency (ER) | payer MEDICAID, SELFPAY ==
[2024-04-21 21:27] VITALS: BP 142/97; PULSE 87; RESP 16; TEMP 36.9; O2SAT 98; BMI 28.8
--- NOTE | 2024-04-21 22:09 | ED_ITS ---
HPI - Eye Problem General Chief complaint: Eye Problems Stated complaint: vision changes Time Seen by Provider: 04/21/24 21:33 History of Present Illness HPI Narrative: This patient comes in reporting visual changes at lasted for about 15 minutes. He states that his vision is completely normal now. A few hours prior to arrival he had colorful colitis scope type images in his visual field. He states that these were present also when he closed his eyes. These symptoms completely resolved and his vision is back to normal. He did not have any altered sensation or unilateral weakness. He is otherwise in good health. He does not report a headache. Related Data Home Medications ?Medication ?Instructions ?Recorded ?Confirmed bupropion HCl 150 mg 24 hr tablet, 150 mg PO QAM 11/30/22 04/21/24 extended release dextroamphetamine-amphetamine 20 1 tab PO BID 11/30/22 04/21/24 mg tablet fluoxetine 20 mg capsule 20 mg PO DAILY 11/30/22 04/21/24 aripiprazole 2 mg tablet 2 mg PO DAILY 10/22/23 04/21/24 trazodone 50 mg tablet mg PO 10/22/23 10/22/23 Allergies Allergy/AdvReac Type Severity Reaction Status Date / Time grass pollen Allergy Verified 04/21/24 21:31 sun Allergy Mild Rash Uncoded 10/28/23 15:29 Review of Systems Status of ROS: Reports: 10 or more systems reviewed and unremarkable except as noted in History and below Narrative: Constitutional: No fevers, no weight gain or loss. Eyes: No discharge. Episode of visual changes as described above. HENT: No congestion, no sore throat, no ear pain. Cardiovascular: No chest pain, no palpitations. Respiratory: No shortness of breath, no wheezes, no cough. Gastrointestinal: No abdominal pain, no vomiting, no diarrhea. Genitourinary: No dysuria, no hematuria. Musculoskeletal: Normal range of motion. Skin: No rashes, no pruritis. Neurological: No dizziness, weakness, sensory change, speech change. Endo/Heme/Allergies: No bruising or bleeding. No polydipsia. Pysch: no suicidality, no anxiety, no insomnia. All other systems reviewed and are negative. [facility] Medical History Sore mouth ?K13.79 - Other lesions of oral mucosa (ICD-10) Prurigo nodularis ?L28.1 - Prurigo nodularis (ICD-10) Left-sided chest pain ?R07.9 - Chest pain, unspecified (ICD-10) Left shoulder pain ?M25.512 - Pain in left shoulder (ICD-10) Left cervical radiculopathy ?M54.12 - Radiculopathy, cervical region (ICD-10) Intussusception of small intestine ?K56.1 - Intussusception (ICD-10) History of methicillin resistant Staphylococcus aureus infection (02/03/13) ?Z86.14 - Personal history of Methicillin resistant Staphylococcus aureus infection (ICD-10) Cellulitis of face (02/05/13) ?L03.211 - Cellulitis of face (ICD-10) Bronchitis ?J40 - Bronchitis, not specified as acute or chronic (ICD-10) Boxer's fracture ?S62.339A - Displaced fracture of neck of unspecified metacarpal bone, initial encounter for closed fracture (ICD-10) Attention deficit disorder of adult with hyperactivity ?F90.9 - Attention-deficit hyperactivity disorder, unspecified type (ICD-10) Surgical History History of hand surgery ?Z98.890 - Other specified postprocedural states (ICD-10) Family History Mother Colon cancer, Onset Age: 60 Heart disease, Onset Age: 57 Maternal Grandmother Stroke, Onset Age: 60 Heart disease Sister Epilepsy Other Lung cancer Social History Smoking Status: Current some day smoker What tobacco products do you use: cigarettes Smoking packs per day: 0.5 Smoking cigarettes per day: 10.0 Years smoked: 10 Smoking pack-years: 5.00 Do you use any of these nicotine containing products: None Second hand tobacco smoke exposure: No How often do you have a drink containing alcohol: 2-4 times a month How many standard drinks containing alcohol do you have on a typical day: 3 or 4 How often do you have six or more drinks on one occasion: Less than monthly AUDIT-C Alcohol total score: 4 Non-prescribed substance use: marijuana (any form) service: No Exam Narrative: Exam Narrative: Constitutional: Well-developed, well-nourished, no acute distress. HEENT: Normocephalic, atraumatic. Neck: Normal range of motion. Nontender. Supple. Heart: Intact distal pulses. Lungs: No chest discomfort. No wheezes, rhonchi, or rales. Abdomen: Nontender. Back: Normal range of motion. Extremities: Normal range of motion. No injury. Skin: Intact. No rash. Warm. No erythema or pallor. Neurologic: No altered sensation. No weakness. Alert and oriented. No facial asymmetry. Tongue is midline. Speech is normal. He is ambulating normally. Psychiatric: No suicidality. No anxiety or depression. No insomnia. Nursing notes and vitals signs are reviewed. Const: Vital Signs, click to edit/add: Vital Signs - 24 hr 04/21/24 21:27 Temperature 98.5 F Pulse Rate [Right Pulse Oximeter] 87 Respiratory Rate 16 Blood Pressure [Ri ght Upper Arm] 142/97 H Pulse Oximetry 98 Oxygen Delivery Me thod Room Air Course Vital Signs Vital signs: Initial Vital Signs Temperature 98.5 F 04/21/24 21:27 Temperature Source Temporal Artery Scan 04/21/24 21:27 Pulse Rate 87 04/21/24 21:27 Pulse Rhythm Regular 04/21/24 21:27 Pulse Strength 3+ Normal 04/21/24 21:27 Respiratory Rate 16 04/21/24 21:27 Blood Pressure 142/97 H 04/21/24 21:27 Blood Pressure Mean 112 H 04/21/24 21:27 Blood Pressure Position Sitting 04/21/24 21:27 Pulse Oximetry 98 04/21/24 21:27 Oxygen Delivery Method Room Air 04/21/24 21:27 Vital Signs Temperature 98.5 F 04/21/24 21:27 Pulse Rate 87 04/21/24 21:27 Respiratory Rate 16 04/21/24 21:27 Blood Pressure 142/97 H 04/21/24 21:27 Pulse Oximetry 98 04/21/24 21:27 Oxygen Delivery Method Room Air 04/21/24 21:27 Temperature 98.5 F 04/21/24 21:27 Pulse Rate 87 04/21/24 21:27 Respiratory Rate 16 04/21/24 21:27 Blood Pressure 142/97 H 04/21/24 21:27 Pulse Oximetry 98 04/21/24 21:27 Oxygen Delivery Method Room Air 04/21/24 21:27 MDM - Eye Problem MDM Narrative Medical decision making narrative: I showed images of scintillating scotoma from a website and the patient immediately identified similar images in his vision. These images lasted for about 15 minutes. His exam and vital signs are reassuring. I did discuss scintillating scotoma with the patient. He is okay to be discharged home and can continue his current plans. Discharge Plan Discharge Clinical Impression: Scintillating scotoma Patient Disposition: Home, Self-Care Condition: Improved Additional Instructions: Continue current plans. Use [id number] medicines as needed and directed. Follow up with MD return if worsening. Prescriptions: No Action aripiprazole 2 mg tablet 2 mg PO DAILY trazodone 50 mg tablet PO dextroamphetamine-amphetamine 20 mg tablet 1 tab PO BID fluoxetine 20 mg capsule 20 mg PO DAILY bupropion HCl 150 mg tablet extended release 24 hr 150 mg PO QAM Follow Up/Referrals: Rafat Wellington MD [Primary Care Provider] - Stand Alone Forms: [employer] Info Instructions
== END 2024-04-21 22:34 | disposition home or self-care (01) ==
LOC: ED 22:16
PROVIDERS: Emergency Provider Emergency Medicine Emergency Medical Services; PCP Family Medicine
DX: H53.19 Other subjective visual disturbances (principal)
CPT/HCPCS: 99283; 99284

== ENCOUNTER 2025-01-17 08:39 | Emergency (ER) | payer MEDICAID, SELFPAY ==
--- OUTSIDE RECORDS SUMMARY | 2025-01-17 08:41 | XMS_ITS | Clinical Summary ---
Author Organization [employer] [facility] Address [address] [place] [id number] Care Team Providers Care [facility] Sales Manager Name Role Phone Votel, Rafat Talamantes MD Primary Care Provider + Allergies Active Allergy Reactions Criticality Noted Date Comments Grass Pollen Other - Describe In Comment Field 10/28/2023 seasonal Sunlight Rash Low 11/30/2022 Medications nicotine 21 mg/24 hr (NICODERM; HABITROL) 21 mg/24 hr patchIndications: Smoking trying to quit Apply 1 Patch on dry, clean, hairless skin once daily. 42 Patch 4 Active Additional Information Patient taking differently:1 Patch Transdermal DAILY,hasn't started yet, Reported on 08/24/2024 hydrOXYzine HCL (ATARAX) 25 mg tabletIndications :Anxiety Take 1-2 Tablets (25-50 mg) by mouth 3 times daily if needed for Anxiety (Sleep). 90 Tablet 2 5 Active dexmethylphenidat e (Focalin) 2.5 mg tabletIndications :Attention deficit hyperactivity disorder (ADHD), combined type Take 1 Tablet (2.5 mg) by mouth two times daily. 60 Tablet 5 Active tacrolimus 0.1 % ointmentIndicatio ns:Polymorphous light eruption apply 2 times daily to affected area(s) until rash clears 60 g 1 5 Active clindamycin phosphate 1% topical 1 % external solutionIndicatio ns:Folliculitis Apply thin layer to affected areas 1-2 times a day as needed. 60 mL 11 5 Active Active Problems Problem Noted Date Diagnosed Date Mood disorder 05/27/2023 Controlled substance agreement signed 04/23/2022 Overview (04/23/2022): 04/23/22 Kelly Johnson [employer] PMHNP/psychiatry Episode of recurrent major depressive disorder 0 02/08/2022 Headache, occipital 03/17/2016 Tobacco abuse 12/21/2014 ADD (attention deficit disorder) 08/03/2012 Resolved Problems Problem Noted Date Diagnosed Date Resolved Date Paranoia 03/03/2022 02/11/2024 Controlled substance agreement signed 01/18/2015 08/06/2022 MRSA (methicillin resistant Staphylococcus aureus) 02/10/2014 08/06/2022 Encounters Date Type Department Care Team Description 01/17/2025 Nurse Triage [facility] [address] [place] [address] Rafat Wellington MD Hand Pain/problem from Last 3 Months Immunizations Immunization Administration Dates Next Due Tdap 09/27/2021 Family History Medical History Relation Name Comments Angioedema Father Aneurysm Maternal Grandmother Cancer-colon Mother Coronary artery disease Mother Seizures Sister Relation Name Status Comments Father Alive Maternal Grandmother Mother Alive Sister Alive Social History Tobacco Use Types Packs/Day Years Used Date Smoking Tobacco: Every Day Cigarettes 0.8 6 Smokeless Tobacco: Never Tobacco Cessation:Ready to Q uit: No; Counseling Given: Yes Alcohol Use Standard Drinks/Week Comments Yes 0 (1 standard drink = 0.6 oz pur e alcohol) rarely PHQ-2 Answer Date Recorded PHQ-2 TOTAL SCORE 1 08/25/2024 Social Connections Answer Date Recorded Frequency of Communication with Friends and Fami ly 0 09/27/2021 Financial Resource Strain Answer Date R ecorded Difficulty of Paying Living Expenses 3 09/27/2021 Difficulty of Paying Living Expenses Not on file 09/27/2021 Food Insecurity Answer Date Recorded Worried About Running Out of Food in the Last Ye ar 1 09/27/2021 Transportation Needs Answer Date Record ed Lack of Transportation (Medical) 1 09/27/2021 Housing Stability Answer Date Recorded Unable to Pay for Housing in the Last Year 1 09/27/2021 Sex and Gender Information Value Date Recorded Sex Assigned at Not on file Legal Sex Male 6:13 AM [employer] Gender Identity Not on file Sexual Orientation Not on file Obstetrics History Last Filed Vital Signs Vital Sign Reading Time Taken Comments Blood Pressure 115/80 08/25/2024 7:50 AM CDT Pulse 69 08/25/2024 7:50 AM CDT Temperature 36.7 C (98 F) 09/27/2021 3:30 PM CDT Respiratory Rate 16 03/17/2016 8:00 AM [employer] Oxygen Saturation 98% 06/02/2024 1:08 PM [employer] Inhaled Oxygen Concentration - - Weight 92.9 kg (204 lb 12.8 oz) 08/25/2024 7:50 AM CDT Height 176.3 cm (5' 9.4) 06/02/2024 1:08 PM [employer] Body Mass Index 29.9 06/02/2024 1:08 PM [employer] Plan of Treatment Upcoming Encounters Date Type Department Care Team (Late st Contact Info) Description 02/08/2025 2:30 PM CDT Office Visit [facility] [id number] [address] Meeta Carrillo, [address] [place] [address] Health Maintenance Due Date Last Done Comments HIV for age 15-65 1997 Hepatitis C screening for ag e 18-79 2000 Hepatitis B series for 19+ ( 1 of 3 - 19+ 3-dose series) 2001 Pneumococcal series for age 6-49 (1 of 2 - PCV) 2001 HPV series for age 9-45 (1 - 3-dose SCDM series) 2009 COVID-19 vaccine series ( - season) 2025 Influenza Vaccine (#1) 2025 BMI (ht and wt on same day) for age 18+ 06/02/2025 06/02/2024, 02/11/2024, 06/05/2023, Additional history exists Depression screening for age 12+ 08/25/2025 08/25/2024, 08/19/2024, 06/16/2024, Additional history exists Lipids for age 35-44 09/27/2026 09/27/2021 Tetanus booster 09/28/2031 09/27/2021, 07/09/2011 (Completed outside of [facility]) RSV vaccine for adults or (1 - 1-dose 75+ series) 2057 Procedures Procedure Name Priority Date/Time Associated Diagnosis Comments LIPID PANEL W REFLEX MEASURED LDL Routine 09/27/2021 4:35 PM CDT Routine general medical examination at a health care facility from Last 3 Months or Most Recently Relevant to Health Maintenance Results * (ABNORMAL) LIPID PANEL W REFLEX MEASURED LDL (09/27/2021 4:35 PM CDT) CHOLESTEROL,TOTAL 150 100 - 199 mg/dL 09/28/2021 2:38 PM CDT [facility] TRIGLYCERIDES 126 <150 mg/dL 09/28/2021 2:38 PM CDT [facility] HDL CHOLESTEROL 39(L) >40 mg/dL 2:38 PM CDT [facility] NON-HDL CHOLESTEROL 111 <145 mg/dl 09/28/2021 2:38 PM CDT [facility] CHOL/HDL RATIO 3.85 <4.50 09/28/2021 2:38 PM CDT [facility] LDL CHOLESTEROL 86 <=130 mg/dL 09/28/2021 2:38 PM CDT [facility] VLDL CHOLESTEROL 25 <=30 mg/dL 09/28/2021 2:38 PM CDT [facility] PROVIDER ORDERED STATUS RANDOM 09/28/2021 2:38 PM CDT [facility] Blood BLOOD SPECIMEN / Unknown Venipuncture / Unknown 09/27/2021 4:35 PM CDT 09/27/2021 4:35 PM CDT us Rafat Wellington MD CHEMISTRY Final Re sult [facility] [address] [place] [address], [place] from Last 3 Months or Most Recently Relevant to Health Maintenance Additional Health Concerns Infection Onset Date Last Indicated MRSA 03/17/2016 03/17/[address] [place] [address] [facility] [address] [place] [address] [facility] Advance Directives * Full Code (Latest Code Status on File) Date Activated Date Inactivated Comments 03/17/2016 3:54 AM 03/17/2016 1:34 PM Question Answer Comments Code Status Discussion: Discussed Care Teams [facility] Sales Manager Relationship Specialty Start Date End Date Votel, Rafat Talamantes MD [address] [place] [address] PCP - General Family Practice 02/09/24
[2025-01-17 08:47] VITALS: BP 145/83; PULSE 72; RESP 18; TEMP 36.8; O2SAT 97; BMI 29.5
--- NOTE | 2025-01-17 09:05 | ED_ITS ---
HPI - General Adult General Time Seen by Provider: 09:05 Date Seen: 01/17/25 Chief complaint: Extremity Pain/Injury, Upper Stated complaint: R hand pain Time Seen by Provider: 01/17/25 09:04 Source: patient, RN notes reviewed and old records reviewed Mode of arrival: ambulatory Limitations: no limitations History of Present Illness HPI narrative: Afshin is a very pleasant 44-year-old gentleman with a history of cervical arthritis who comes to the emergency room for evaluation regarding in numbness in his right 4th and 5th fingers along with his hand. Afshin notes that he woke up with this yesterday morning so symptoms have been ongoing for greater than 24 hours. He cannot recall any specific injury recently. He does note in the past that he will often get numbness in this area if he is leaning on his elbow. He denies any elbow pain today but does note about a week and a half ago he seemed to have increased elbow pain that he attributed to ?tennis elbow?. No neck or shoulder pain today. Patient does endorse sleeping with hyperflexed elbows at night. Afshin formally worked in [employer] and has now been doing construction over the summer. No reports of lower extremity symptoms visual changes or headache. Related Data Home Medications ?Medication ?Instructions ?Recorded ?Confirmed No Known Home Medications 01/17/2501/03 Allergies Allergy/AdvReac Type Severity Reaction Status Date / Time grass pollen Allergy Verified 01/17/25 08:51 sun Allergy Mild Rash Uncoded 10/28/23 15:29 Review of Systems Status of ROS: Reports: 10 or more systems reviewed and unremarkable except as noted in History and below Eyes: Denies: change in vision ENMT: Denies: neck pain Resp: Denies: cough Musculo: Denies: back pain, neck pain or extremity pain Integ/Breast: Denies: redness Neuro: Reports: numbness in extremities; Denies: headache PFSH [facility] Medical History Sore mouth ?K13.79 - Other lesions of oral mucosa (ICD-10) Prurigo nodularis ?L28.1 - Prurigo nodularis (ICD-10) Left-sided chest pain ?R07.9 - Chest pain, unspecified (ICD-10) Left shoulder pain ?M25.512 - Pain in left shoulder (ICD-10) Left cervical radiculopathy ?M54.12 - Radiculopathy, cervical region (ICD-10) Intussusception of small intestine ?K56.1 - Intussusception (ICD-10) History of methicillin resistant Staphylococcus aureus infection (02/03/13) ?Z86.14 - Personal history of Methicillin resistant Staphylococcus aureus infection (ICD-10) Cellulitis of face (02/05/13) ?L03.211 - Cellulitis of face (ICD-10) Bronchitis ?J40 - Bronchitis, not specified as acute or chronic (ICD-10) Boxer's fracture ?S62.339A - Displaced fracture of neck of unspecified metacarpal bone, initial encounter for closed fracture (ICD-10) Attention deficit disorder of adult with hyperactivity ?F90.9 - Attention-deficit hyperactivity disorder, unspecified type (ICD-10) Surgical History History of hand surgery ?Z98.890 - Other specified postprocedural states (ICD-10) Family History Mother Colon cancer, Onset Age: 60 Heart disease, Onset Age: 57 Maternal Grandmother Stroke, Onset Age: 60 Heart disease Sister Epilepsy Other Lung cancer Social History Smoking Status: Current some day smoker What tobacco products do you use: cigarettes Smoking packs per day: 0.5 Smoking cigarettes per day: 10.0 Years smoked: 10 Smoking pack-years: 5.00 Do you use any of these nicotine containing products: None Second hand tobacco smoke exposure: No How often do you have a drink containing alcohol: 2-4 times a month How many standard drinks containing alcohol do you have on a typical day: 3 or 4 How often do you have six or more drinks on one occasion: Less than monthly AUDIT-C Alcohol total score: 4 Non-prescribed substance use: marijuana (any form) service: No Exam Narrative: Exam Narrative: Patient is alert and oriented. Face is symmetrical. Moving all extremities symmetrically and ambulation is without difficulty. Examination of the neck shows no midline tenderness. Spurling sign is negative on the right. Upper extremity strength intact with the exception of in the hands. Cranial nerve 11 intact with shoulder struck. Biceps triceps strength intact. At the wrist questionable very subtle decreased strength in dorsiflexion. Finger abduction weak on the right especially 5th finger. Examination of the hand show what is some subtle wasting of the hypothenar aspect on the right. Compression over ulnar nerve at the elbow does increase symptoms in the right 4th and 5th fingers. Const: Vital Signs, click to edit/add: Vital Signs - 24 hr 01/17/25 08:47 Temperature 98.3 F Pulse Rate [Right Pulse Oximeter] 72 Respiratory Rate 18 Blood Pressure [Ri ght Upper Arm] 145/83 H Pulse Oximetry 97 Oxygen Delivery Me thod Room Air Documenting provider has reviewed patient's vital signs: yes Course Course ED Course: Differential diagnosis includes but is not limited to cervical radiculopathy, ulnar neuropathy, nerve compression at the wrist, stroke. At this time I do not think we are dealing with a stroke given patient's localized symptoms, history of elbow discomfort recently and overall exam. Symptoms and exam fits and own are neuropathy secondary to some compression. Will obtain x-ray of the right elbow. Reevaluation(s) Reevaluation #1: Posterior splint created so patient is in mild flexion at the elbow. This should prevent hyperflexion during sleeping. Alternatives are keeping a pillow at the elbow. Consultations Consultation #1: I had the pleasure of speaking with orthopedic surgeon Dr. Aguirre. This time will see the patient in clinic. We spoke of a posterior splint for sleeping at night which I will make here in the emergency room. Also spoke of a trial of steroids. Vital Signs Vital signs: Initial Vital Signs Temperature 98.3 F 01/17/25 08:47 Temperature Source Temporal Artery Scan 01/17/25 08:47 Pulse Rate 72 01/17/25 08:47 Pulse Rhythm Regular 01/17/25 08:47 Pulse Strength 3+ Normal 01/17/25 08:47 Respiratory Rate 18 01/17/25 08:47 Blood Pressure 145/83 H 01/17/25 08:47 Blood Pressure Mean 103 01/17/25 08:47 Blood Pressure Position Sitting 01/17/25 08:47 Pulse Oximetry 97 01/17/25 08:47 Oxygen Delivery Method Room Air 01/17/25 08:47 Vital Signs Temperature 98.3 F 01/17/25 08:47 Pulse Rate 72 01/17/25 08:47 Respiratory Rate 18 01/17/25 08:47 Blood Pressure 145/83 H 01/17/25 08:47 Pulse Oximetry 97 01/17/25 08:47 Oxygen Delivery Method Room Air 01/17/25 08:47 Temperature 98.3 F 01/17/25 08:47 Pulse Rate 72 01/17/25 08:47 Respiratory Rate 18 01/17/25 08:47 Blood Pressure 145/83 H 01/17/25 08:47 Pulse Oximetry 97 01/17/25 08:47 Oxygen Delivery Method Room Air 01/17/25 08:47 Medical Decision Making MDM Narrative Medical decision making narrative: 1. Right ulnar neuropathy-created a posterior splint that patient may use for sleep at night. Have given him off work until he is seen in the orthopedic clinic on January 20. Recommend icing to this area as well as rest. Will do a trial steroids prednisone 40 mg daily x5 days. Patient has had steroids in the past and does not appear that he has had significant side effects. Note for work given. 2. Disposition-home at this time. Return for onset of new symptoms worsening symptoms and as needed. Medical Records Medical records reviewed: Yes I reviewed the patient's medical records Imaging Data Elbow x-ray: Attestation: I have reviewed the pertinent imaging results. My impression: I do not note any acute abnormalities. Radiologist's impression: No joint effusion, fracture, joint space narrowing, erosive change, loose body or other abnormality. IMPRESSION: Negative right elbow Discharge Plan Discharge Clinical Impression: Ulnar neuropathy of right upper extremity Patient Disposition: Home, Self-Care Condition: Unchanged Additional Instructions: 1. Ice to elbow as needed. 2. See rear splint while sleeping at night to prevent extreme flexion at the elbow. 3. Follow-up with orthopedics on 4. Trial of steroids to see if this would help any inflammation that may be present in the elbow. Prednisone was sent to our [facility] machine. 5. Return to the ER for worsening symptoms. Follow up appointment is scheduled at the [facility] on 01/20 with a 9am arrival time. Prescriptions: No Action No Known Home Medications Follow Up/Referrals: Rafat Wellington MD [Primary Care Provider, Family Practice] Stand Alone Forms: Work/School Release, [facility] Info Instructions
--- NOTE | 2025-01-17 09:14 | CRLHL7_ITS ---
For Patients: As a result of the Cures Act, medical imaging exams and procedure reports are released immediately into your electronic medical record. You may view this report before your referring provider. If you have questions, please contact your health care provider. INDICATION: Right 4th and 5th finger numbness TECHNIQUE: AP and lateral views of the right elbow COMPARISON: 12/24/2023 FINDINGS: No joint effusion, fracture, joint space narrowing, erosive change, loose body or other abnormality. IMPRESSION: Negative right elbow Dictated by Benjamín Antony MD @ 01/17/2025 9:54:14 AM (Electronically Signed)
== END 2025-01-17 10:27 | disposition home or self-care (01) ==
PROVIDERS: Emergency Provider Family Medicine; PCP Family Medicine
DX: G56.21 Lesion of ulnar nerve, right upper limb (principal)
CPT/HCPCS: 73070; 99283; 99284